=== PATIENT | female | born 2000 | race Native Hawaiian/Other Pacific Islander ===

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

== ENCOUNTER 2022-01-31 08:13 | Outpatient (CLI) | payer OTHER | END 2022-01-31 19:49 | disposition home or self-care (01) | LOC: NM 08:13 | PROVIDERS: ATTEND Physician Assistant | DX: F41.9 Anxiety disorder, unspecified (principal); R10.13 Epigastric pain | CPT/HCPCS: A9537 ==

== ENCOUNTER 2022-06-04 12:51 | Emergency (ER) | payer OTHER ==
[~2022-06-04] VITALS: Ht 160 cm; Wt 58.1 kg
[2022-06-04 13:09] VITALS: BP 108/67; TEMP 97.3
== END 2022-06-04 13:40 | disposition home or self-care (01) ==
LOC: ED 12:51
DX: U07.1 COVID-19 (principal)
CPT/HCPCS: 99281